=== PATIENT | female | born 1980 | race American Indian/Alaskan Native ===

== ENCOUNTER 2017-04-13 13:11 | Emergency (ER) | payer MEDICAID, OTHER ==
[2017-04-13 14:23] VITALS: BP 116/84
[2017-04-13] MEDS ORDERED: TORADOL IM ONE (17:04)
[2017-04-13] MEDS ORDERED: NORCO 5/325 PO ONE (17:04)
[2017-04-13] MEDS ORDERED: FLEXERIL PO ONE (17:04)
--- NOTE | 2017-04-13 18:20 | XRay Report ---
FINAL REPORT EXAM: XR KNEE 1-2V RT HISTORY: fall knee pain TECHNIQUE: Right knee 2 views PRIORS: None. FINDINGS: No fracture is identified. No dislocation seen. No evidence of joint effusion. Patella demonstrates normal positioning. No acute bony abnormality identified. IMPRESSION: Negative knee series
--- NOTE | 2017-04-13 18:23 | XRay Report ---
FINAL REPORT EXAM: XR SHOULDER 2+V RT HISTORY: fall shoulder pain TECHNIQUE: Three views right shoulder PRIORS: None. FINDINGS: No fractures are identified. No dislocation seen. The acromioclavicular joint is intact. Adjacent bony and soft tissue structures are unremarkable. IMPRESSION: Negative shoulder series
--- NOTE | 2017-04-13 18:24 | XRay Report ---
FINAL REPORT EXAM: XR SPINE CERVICAL 2-3V HISTORY: fall neck pain TECHNIQUE: Cervical spine five views PRIORS: None. FINDINGS: Vertebral bodies demonstrate normal height and alignment. The disk spaces are within normal limits. The facet joints demonstrate normal alignment. The spinous processes are intact. Craniocervical junction is unremarkable. C1 and C2 are intact. IMPRESSION: Negative cervical spine series.
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
== END 2017-04-13 18:58 | disposition home or self-care (01) ==
LOC: ED 13:11
DX: M54.2 Cervicalgia (principal); M25.511 Pain in right shoulder; M25.561 Pain in right knee; W18.30XA Fall on same level, unspecified, initial encounter; Y93.9 Activity, unspecified; Y92.9 Unspecified place or not applicable; Y99.9 Unspecified external cause status
CPT/HCPCS: 72040; 73030; 73560; 96372; 99283; J1885

== ENCOUNTER 2021-05-31 22:10 | Emergency (ER) | payer OTHER, MEDICAID ==
[2021-06-01] MEDS ORDERED: ACETAMINOPHEN 325 MG TAB PO ONE (00:03)
[2021-06-01] MEDS ORDERED: METOCLOPRAMIDE 10 MG TAB PO ONE (00:03)
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
[2021-06-01 00:12] VITALS: BP 118/67
--- NOTE | 2021-06-01 00:54 | Cat Scan Report ---
CT HEAD WITHOUT CONTRAST INDICATION / CLINICAL INFORMATION: headache concussion closed head injury. TECHNIQUE: All CT scans at this location are performed using CT dose reduction for ALARA by means of automated e xposure control. COMPARISON: None available. FINDINGS: HEMORRHAGE: None. EXTRA-AXIAL SPACES: Normal in size and morphology for the patient's age. VENTRICULAR SYSTEM: Normal in size and morphology for the patient's age. CEREBRAL PARENCHYMA: No significant abnormality. No acute territorial infarct. MIDLINE SHIFT OR HERNIATION: None. CEREBELLUM / BRAINSTEM: No significant abnormality. ORBITS: Normal as visualized. SOFT TISSUES of HEAD: No significant abnormality. CALVARIUM: No significant abnormality. PARANASAL SINUSES / MASTOID AIR CELLS: Normal as visualized. ADDITIONAL FINDINGS: None. IMPRESSION: 1. No acute intracranial abnormality. Signer Name: Matthew Mcdonald MD Signed: 06/01/2021 12:50 AM Workstation Name: [id number]
== END 2021-06-01 01:45 | disposition home or self-care (01) ==
LOC: ED 22:10
DX: S06.0X0A Concussion without loss of consciousness, initial encounter (principal); F17.200 Nicotine dependence, unspecified, uncomplicated; Z98.890 Other specified postprocedural states; Z88.0 Allergy status to penicillin; Z91.013 Allergy to seafood; Z79.899 Other long term (current) drug therapy; V89.2XXA Person injured in unspecified motor-vehicle accident, traffic, initial encounter; Y93.39 Activity, other involving climbing, rappelling and jumping off; Y92.488 Other paved roadways as the place of occurrence of the external cause; Y99.8 Other external cause status
CPT/HCPCS: 70450; 99283